=== PATIENT | female | born 2000 | race Hispanic/Latino ===

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

== ENCOUNTER 2023-04-13 09:00 | Emergency (ER) | payer SELFPAY ==
[~2023-04-13] VITALS: Ht 134.6 cm; Wt 43.0 kg
[~2023-04-13 09:00] MED LIST changes: +ALBENZA200 MG PO
[2023-04-13 09:30] VITALS: BP 114/70
[2023-04-13 09:45] VITALS: BP 112/74
[2023-04-13 10:00] VITALS: BP 120/85
[2023-04-13 10:15] VITALS: BP 107/75
[2023-04-13 10:30] VITALS: BP 127/84
[2023-04-13 10:34] VITALS: BP 127/84
== END 2023-04-13 10:48 | disposition home or self-care (01) | DRG 866 ==
LOC: ED 09:00
DX: B34.9 Viral infection, unspecified (principal); Z20.822 Contact with and (suspected) exposure to COVID-19